=== PATIENT | female | born 1995 | race Caucasian/White ===

== ENCOUNTER 2016-07-12 08:12 | Emergency (ER) | payer BC ==
[2016-07-12 09:08] VITALS: BP 123/43
[2016-07-12] MEDS ORDERED: Ibuprofen TAB* 600 MG PO ONE (09:08)
--- NOTE | 2016-07-12 09:15 | UC ---
Throat Pain/Nasal Marvel HPI - HPI Summary HPI Summary: Sore throat and swollen neck glands onset last night. fever, hasnt taken anti- pyretic. denies . Has had strep in past and feels similar. + white spots. + exposure to strep. She has had mono. - History of Current Complaint Chief Complaint: UCRespiratory Stated Complaint: SORE THROAT,BODY ACHES,HEADACHE Time Seen by Provider: 07/12/16 09:01 Hx Last Menstrual Period: 06/02/16 Onset/Duration: Sudden Onset - Allergies/Home Medications Allergies/Adverse Reactions: Allergies Allergy/AdvReac Type Severity Reaction Status Date / Time No Known Allergies Allergy Verified 07/12/16 09:02 Home Medications: Home Medications O C 1 tab PO QPM 07/12/16 [History Confirmed 07/12/16] PMH/Surg Hx/FS Hx/Imm Hx Previously Healthy: Yes Endocrine History Of: Reports: Thyroid Disease Denies: Diabetes, Hyperthyroidism, Hypothyroidism, Dyslipidemia Cardiovascular History Of: Denies: Cardiac Disorders, Hypertension, Pacemaker/ICD, Myocardial Infarction , Congestive Heart Failure, Atrial Fibrillation, Deep Vein Thrombosis, Bleeding Disorders Respiratory History Of: Denies: COPD, Asthma, Bronchitis, Pneumonia, Pulmonary Embolism GI/ History Of: Denies: Gastroesophageal Reflux, Ulcer, Gastrointestinal Bleed, Gall Bladder Disease, Kidney Stones, Diverticulitis, Renal Disease, Urosepsis Neurological History Of: Denies: TIA, CVA, Dementia, Seizures, Migraine Psychological History Of: Denies: Anxiety, Depression, Bipolar Disorder, Schizophrenia, Post Traumatic Stress Disorder Cancer History Of: Denies: Lung Cancer, Colorectal Cancer, Breast Cancer, Prostate Cancer, Cervical Cancer Other History Of: Negative For: HIV, Hepatitis B, Hepatitis C, Anticoagulant Therapy - Surgical History Surgical History: None - Family History Known Family History: Negative: Cardiac Disease, Hypertension - Social History Alcohol Use: Occasionally Substance Use Type: None Smoking Status (MU): Never Smoked Tobacco Review of Systems Constitutional: Fever, Chills, Fatigue Skin: Negative Eyes: Negative ENT: Sore Throat Respiratory: Negative Cardiovascular: Negative Gastrointestinal: Negative Genitourinary: Negative Motor: Negative Neurovascular: Negative Musculoskeletal: Negative Neurological: Negative Psychological: Negative All Other Systems Reviewed And Are Negative: Yes Physical Exam Triage Information Reviewed: Yes Appearance: Ill-Appearing - lying on exam table. Vital Signs: Initial Vital Signs Temp 101.1 F 07/12/16 08:54 Pulse 105 07/12/16 08:54 Resp 16 07/12/16 08:54 BP 123/43 07/12/16 08:54 Vital Signs Reviewed: Yes Eye Exam: Normal ENT: Positive: Pharyngeal erythema, TMs normal, Tonsillar swelling - airway patent, no abscess. no drooling, voice is nml., Tonsillar exudate Neck exam: Normal Neck: Positive: Supple, Enlarged Nodes @ - b/l anterior cervical with mild tenderness, no posterior. Respiratory Exam: Normal Respiratory: Positive: Lungs clear, Normal breath sounds, No respiratory distress, No accessory muscle use. Negative: Crackles, Rhonchi, Stridor, Wheezing Cardiovascular Exam: Normal Cardiovascular: Positive: RRR, No Murmur, Pulses Normal, Brisk Capillary Refill Abdominal Exam: Normal Abdomen Description: Positive: Nontender, Soft Musculoskeletal Exam: Normal Neurological Exam: Normal Psychological Exam: Normal Skin Exam: Normal Re-Evaluation - Re-Evaluation First Eval Re-Evaluation Time: 10:00 Change: Improved - with 600mgs ibuprofen Throat Pain/Nasal Course/Dx - Course Course Of Treatment: rapid flu and strep neg. will treat sx classic for strep. has had mono. f/u with [facility] 1-2 days. NSAIDS for pain/ fever for limited time. SHe understood me well and agreeable with plan. we did discuss risks of abx. - Differential Dx/Diagnosis Differential Diagnosis/HQI/PQRI: Influenza, Peritonsillar Abscess, Pharyngitis, Tonsillitis, URI Provider Diagnoses: Pharyngitis Discharge - Discharge Plan Condition: Stable Disposition: HOME Prescriptions: Amoxicillin (*) [Amoxicillin 875 MG (*)] 875 mg PO BID #20 tab Patient Education Materials: Pharyngitis (ED) Forms: *School Release Referrals: Non Staff,Doctor [Primary Care Provider] - Additional Instructions: Follow up with [facility] in 2 days. Ibuprofen for pain. You should take a probiotic or eat yogurt every day while you are on an antibiotic. Make sure to use back up control as antibiotics can decrease the efficacy of control pills. Flu and strep were negative. Clinically, I suspect there may be a false negative strep and will treat you with antibiotics regardless.
== END 2016-07-12 10:10 | disposition home or self-care (01) ==
LOC: UCCORT 08:12
DX: J02.9 Acute pharyngitis, unspecified (principal)
CPT/HCPCS: 87502; 87651; 99212; A9270-GY; G0463

== ENCOUNTER 2017-03-21 11:59 | Emergency (ER) | payer BC ==
[2017-03-21 12:13] VITALS: BP 114/67
--- NOTE | 2017-03-21 13:27 | UC ---
Respiratory Complaint HPI - HPI Summary HPI Summary: 21 female presents to with complaints of productive cough, chest congestion, SOB/wheezing, body aches, intermittent fever/chills, and nasal congestion that has been ongoing for the past 3 weeks. States symptoms have not improved and feel as though they are worsening with the intermittent fever/chills. Coughing up yellow/green mucus. Has been taking dayquil severe and ibuprofen without much relief. Does have some relief from body aches and pain. Denies chest pain and difficulty breathing. No PMHx other than hypothyroid for which she takes levothyroxine for. States she also recently has been feeling nauseous but denies diarrhea, vomiting and abdominal pain. No other complaints. Took dayquil this morning [employer]. No recent travel or antibiotic use. Did not have flu shot this year. No known sick contacts at this time. Taking deep breaths makes patient cough. - History of Current Complaint Chief Complaint: UCGeneralIllness Stated Complaint: FLU LIKE SYMPTOMS Time Seen by Provider: 03/21/17 13:01 Hx Obtained From: Patient Hx Last Menstrual Period: 03/13/17 Onset/Duration: Sudden Onset, Lasting Weeks, Still Present, Worse Since Timing: Constant Severity Initially: Mild Severity Currently: Moderate Pain Intensity: 3 Pain Scale Used: 0-10 Numeric Character: Cough: Productive Aggravating Factors: Exertion, Deep Breaths, Recumbent Position Alleviating Factors: OTC Meds, Upright Position, Nothing Associated Signs And Symptoms: Positive: Fever, Chills, Wheezing, URI, Nasal Congestion - Allergies/Home Medications Allergies/Adverse Reactions: Allergies Allergy/AdvReac Type Severity Reaction Status Date / Time No Known Allergies Allergy Verified 03/21/17 12:07 Home Medications: Home Medications Bcp 1 tab BEDTIME 03/21/17 [History Confirmed 03/21/17] PMH/Surg Hx/FS Hx/Imm Hx Endocrine History: Hypothyroidism Other History Of: Negative For: HIV, Hepatitis B, Hepatitis C, Anticoagulant Therapy - Surgical History Surgical History: None - Family History Known Family History: Negative: Cardiac Disease, Hypertension - Social History Alcohol Use: Occasionally Substance Use Type: None Smoking Status (MU): Never Smoked Tobacco - Immunization History Most Recent Influenza Vaccination: no Review of Systems Constitutional: Fever, Chills, Fatigue Eyes: Negative ENT: Nasal Discharge Respiratory: Shortness Of Breath, Cough Cardiovascular: Negative Gastrointestinal: Nausea Musculoskeletal: Myalgia Neurological: Headache All Other Systems Reviewed And Are Negative: Yes Physical Exam Triage Information Reviewed: Yes Appearance: Well-Appearing, No Pain Distress, Well-Nourished Vital Signs: Initial Vital Signs Temp 97.8 F 03/21/17 12:08 Pulse 90 03/21/17 12:08 Resp 18 03/21/17 12:08 BP 114/67 03/21/17 12:08 Pulse Ox 99 03/21/17 12:08 Vital Signs Reviewed: Yes Eyes: Positive: Conjunctiva Clear ENT: Positive: Hearing grossly normal, Pharynx normal, Nasal congestion, TMs normal, Uvula midline. Negative: TM bulging, TM dull, TM red, Tonsillar swelling, Tonsillar exudate, Trismus, Sinus tenderness Dental: Positive: Cervical Lymphadenopathy. Negative: Percussion Tenderness @ Neck: Positive: Supple, Nontender Respiratory: Positive: Chest non-tender, Lungs clear, No respiratory distress, No accessory muscle use, Decreased breath sounds. Negative: Crackles, Rhonchi, Stridor, Wheezing Cardiovascular: Positive: RRR, No Murmur, Pulses Normal, Brisk Capillary Refill - <2sec Abdomen Description: Positive: Nontender, Soft Bowel Sounds: Positive: Present Musculoskeletal: Positive: Strength Intact Neurological: Positive: Alert Skin Exam: Normal UC Diagnostic Evaluation - Laboratory O2 Sat by Pulse Oximetry: 99 - CT CT Interpretation: No Acute Changes - NORMAL CHEST. CT Interpretation Completed By: Radiologist - and myself Respiratory Course/Dx - Course Course Of Treatment: xray obtained to r/o penumonia and negative. due to length of symptoms, worsening symptoms and new symptoms will treat with z nisha, continue ibuprofen. recommend switching to mucinex and using flonase. increase fluid intake and get plenty of rest. aware of worsening signs and symptoms. no concern for other etiology at this time. follow up with PCP. - Differential Dx/Diagnosis Differential Diagnosis/HQI/PQRI: Bronchitis, Influenza, Lower Resp Infection, Other - pnuemonia, URI Provider Diagnoses: URI/Bronchitis Discharge - Discharge Plan Condition: Stable Disposition: HOME Prescriptions: RX: Azithromycin TAB* [Zithromax TAB (Z-NISHA) 250 mg #6 tabs] 2 tab PO .TODAY, THEN 1 DAILY #1 nisha Fluticasone NASAL SPRAY 50MCG* [Flonase NASAL SPRAY 50MCG*] 2 spray BOTH NARES DAILY #1 btl Patient Education Materials: Upper Respiratory Infection (ED), Acute Bronchitis (ED) Forms: *School Release Referrals: Non Staff,Doctor [Primary Care Provider] - Additional Instructions: Take medication as prescribed until entire dose is finished. Recommend trying mucinex instead of dayquil. Continue ibuprofen as needed for body aches and fever. Flonase for nasal congestion. You may want to take cough medicine you can get OTC for bedtime if cough is keeping you awake. Increase fluid intake, get plenty of rest. Wash hands frequently and cover mouth when coughing. Follow up with [facility] to ensure improvement. Any new or worsening symptoms please seek medical attention, as discussed.
--- NOTE | 2017-03-21 13:56 | RAD ---
INDICATION: Pneumonia COMPARISON: None TECHNIQUE: PA and lateral dual-energy views were obtained. FINDINGS: Bones/Soft Tissues: There are no acute bony findings. Cardiomediastinal: The cardiomediastinal silhouette is normal. Lungs: There are no infiltrates. Pleura: There are no pleural effusions. Other: None IMPRESSION: NORMAL CHEST.
== END 2017-03-21 14:08 | disposition home or self-care (01) ==
LOC: UCCORT 11:59
DX: J06.9 Acute upper respiratory infection, unspecified (principal); J40 Bronchitis, not specified as acute or chronic; E03.9 Hypothyroidism, unspecified
CPT/HCPCS: 71020; 99212; G0463